=== PATIENT | male | born 1950 | race Caucasian/White ===

== ENCOUNTER → 2017-05-29 | Outpatient (CLI) | payer BC ==
--- NOTE | 2017-05-29 10:16 | DIAGNOSTIC IMAGING REPORT ---
L HAND MIN 3 VIEWS ROUTINE, R HAND MIN 3 VIEWS ROUTINE CLINICAL HISTORY: BILATERAL HAND PAIN COMPARISON STUDY: None. FINDINGS: No fracture or dislocation. Soft tissues are unremarkable. No erosions identified. Bone mineralization is intact. Mild osteoarthritis within the bilateral first carpometacarpal joints. The remaining cartilage spaces are maintained for age. IMPRESSION: 1. Mild osteoarthritis within the bilateral first carpometacarpal joints. 2. No erosions within the hands. Electronically signed by: Nitin Pagan M.D. 05/29/2017 10:15 AM Dictated Date/Time: 05/29/2017 10:12 AM
== END | disposition home or self-care (01) ==
LOC: C.RAD1850 09:55
PROVIDERS: ATTEND Internal Medicine Rheumatology
DX: M79.642 Pain in left hand (principal); M79.641 Pain in right hand